=== PATIENT | female | born 1995 | race Caucasian/White ===

== ENCOUNTER 2022-12-08 19:15 | Emergency (ER) | payer BC, SELFPAY ==
[2022-12-08] VITALS (12 sets, daily range): BP systolic 103–112; BP diastolic 68–78; PULSE 78–90; RESP 16; TEMP 36.5; O2SAT 96–99; BMI 32.8
--- NOTE | 2022-12-08 19:53 | CRLHL7_ITS ---
For Patients: As a result of the Century Cures Act, medical imaging exams and procedure reports are released immediately into your electronic medical record. You may view this report before your referring provider. If you have questions, please contact your health care provider. INDICATION: Positive test. Left lower quadrant pain. TECHNIQUE: Ultrasound OB pelvis transabdominal and transvaginal. Real-time gomes-scale imaging of the pelvis was performed. COMPARISON: None FINDINGS: No intrauterine gestational sac was identified. Unremarkable appearance of the bilateral ovaries. Small volume pelvic free fluid noted. IMPRESSION: No intrauterine gestational sac identified. Findings reflect of unknown location, differential of which includes a very early , miscarriage, or unidentified ectopic . Recommend continued correlation/trending of serum beta HCG, and repeat ultrasound as clinically indicated. Dictated by Ge Ochoa MD @ 12/08/2022 11:40:45 PM (Electronically Signed)
[2022-12-08 20:36] LABS: Appearance Urine Clear (Clear); Bilirubin Urine Negative (Negative); Blood Urine 3+ (Negative); Color Urine Yellow (Yellow); Glucose Urine Negative (Negative); Ketones Urine Negative (Negative); Leukocyte Esterase Urine Trace (Negative); Nitrite Urine Negative (Negative); Protein Urine Negative (Negative); Specific Gravity Urine 1.015 (1.000-1.030); Urobilinogen Urine 0.2 (0.2-1.0)
[2022-12-08 20:38] LABS: Lactate* 0.6 mmol/L (0.5-1.9)
[2022-12-08 20:39] LABS: Basophils Percent Auto 0.1 % (0.0-3.0); Eosinophils Percent Auto 0.9 % (0.0-7.0); Hematocrit 41.8 % (33.0-51.0); Hemoglobin* 13.9 gm/dL (12.0-16.0); Immature Granulocytes Pct Auto 0.1 %; Lymphocytes Percent Auto 26.1 % (20-44); Mean Corpuscular HGB Conc 33 gm/dL (32-36); Mean Corpuscular Hemoglobin 28 pg (26-34); Mean Corpuscular Volume 85 fL (80-100); Monocytes Percent Auto 8.5 % (0.0-11.0); Neutrophils Percent Auto 64.3 % (42.0-72.0); Platelet Count* 418 K/uL (140-440); RDW Coefficient of Variation % 13.3 % (11.5-15.5); Red Blood Count 4.91 m/uL (4.00-5.20); White Blood Count* 14.19 K/uL (4.50-11.00)
[2022-12-08 20:45] LABS: Slide Review Reflex No
[2022-12-08 20:46] LABS: Squamous Epithelial Cell Urine Few (None-Few); WBC Urine 0-2 (0-5)
[2022-12-08 21:18] LABS: HCG Quantitative* 67.18 mIU/mL
[2022-12-08 21:59] LABS: Albumin* 4.2 g/dL (3.3-5.0); Chloride* 111 mmol/L (96-114); Potassium* 4.5 mmol/L (3.6-5.1); Sodium* 138 mmol/L (135-149)
[2022-12-08 22:01] LABS: Creatinine* 0.5 mg/dL (0.5-1.5); Est. Creatinine Clearance* 145.94; Estimated Glomerular Filt Rate 132 ml/min
[2022-12-08 22:02] LABS: Alanine Aminotransferase* 28 U/L (4-35); Alkaline Phosphatase* 83 U/L (40-150); Aspartate Amino Transferase* 41 U/L (12-35); Bilirubin Direct* 0.4 mg/dL (0.0-0.5); Bilirubin Total* 0.5 mg/dL (0.1-1.5); Blood Urea Nitrogen* 6 mg/dL (5-24); Calcium* 8.8 mg/dL (8.4-10.6); Carbon Dioxide* 15 mmol/L (20-32); Glucose* 82 mg/dL (60-115); Total Protein* 7.7 g/dL (6.0-8.3)
[2022-12-08 22:05] LABS: C Reactive Protein* 0.5 mg/dL (0.5-1.0)
--- NOTE | 2022-12-08 22:25 | ED.GENADULT ---
HPI - General Adult General Chief complaint: Vaginal Bleeding <Tamika Osullivan MD - Last Filed: 12/08/22 22:28> Stated complaint: Lower Left abdominal pain, <Tamika Osullivan MD - Last Filed: 12/08/22 22:28> Time Seen by Provider: 12/08/22 19:44 <Tamika Osullivan MD - Last Filed: 12/08/22 22:28> Source: patient <Tamika Osullivan MD - Last Filed: 12/08/22 22:28> Mode of arrival: ambulatory <Tamika Osullivan MD - Last Filed: 12/08/22 22:28> History of Present Illness HPI narrative: 27-year-old female G1 coming in today with vaginal bleeding cramping. Patient states that she was in to see her fertility doctor last week to start fertility treatments. She had a the test done prior to initiation of treatment and came back positive. She states that they did an ultrasound and then see anything inside the uterus or fallopian tubes. This that perhaps it was too early. Today she started having vaginal spotting with intense left lower quadrant abdominal pain. She denies nausea vomiting. No fevers or chills. Normal bowel movements. No pain with urination. No increased urinary frequency or urgency. She is concerned about an the topic . There is no PAIGE as patient's periods have been very irregular. <Tamika Osullivan MD - Last Filed: 12/08/22 22:28> Related Data Allergies/adverse reactions: Allergies Allergy/AdvReac Type Severity Reaction Status Date / Time Cephalosporins Allergy Verified 12/08/22 19:19 Corticosteroids Allergy Verified 12/08/22 19:19 (Glucocorticoids) <Tamika Osullivan MD - Last Filed: 12/08/22 22:28> Review of Systems Status of ROS: Reports: 10 or more systems reviewed and unremarkable except as noted in History and below <Tamika Osullivan MD - Last Filed: 12/08/22 22:28> [facility] [place] Social History: Social History Smoking Status: Never smoker Do you use any of these nicotine containing products: None Second hand tobacco smoke exposure: No How often do you have a drink containing alcohol: monthly or less How many standard drinks containing alcohol do you have on a typical day: 1 or 2 How often do you have six or more drinks on one occasion: Never AUDIT-C Alcohol total score: 1 Non-prescribed substance use: denies use service: No <Tamika Osullivan MD - Last Filed: 12/08/22 22:28> Exam Narrative: Exam Narrative: Well-nourished well-developed patient in no acute distress. Alert and oriented. Answers questions appropriately. Mood and affect are appropriate. Thoughts are goal oriented and rational. No tangential or magical thinking noted. Patient speaks in full sentences without needing to catch their breath. HEENT: Normocephalic atraumatic. Pupils are equally round reactive to light. Extraocular muscles are intact. Conjunctivae are moist without any icterus noted. Moist mucous membranes. Posterior pharynx is normal. Neck is soft without any lymphadenopathy or thyromegaly. No masses are appreciated. Cardiovascular: Heart is regular rate and rhythm S1 and S2 are present without any murmurs. Lungs: Clear to auscultation bilaterally no wheezes rhonchi or rales are appreciated. Patient takes deep breaths without any discomfort. Abdomen: Soft and nondistended with normal bowel sounds. She has no guarding or rebound. She does have some left lower quadrant tenderness into the pelvic region. Mild suprapubic discomfort as well. Extremities: Bilateral lower extremities are without edema. Normal DP and PT pulses. Skin: Well perfused without any obvious rashes. <Tamika Osullivan MD - Last Filed: 12/08/22 22:28> Const: Vital Signs, click to edit/add: Vital Signs - 24 hr 12/08/22 19:19 12/08/22 20:43 12/08/22 20:44 Temperature 97.7 F Pulse Rate 82 82 Pulse Rate [Pulse Oximeter] 86 Respiratory Rate 16 Blood Pressure 109/71 Blood Pressure [Ri ght Upper Arm] 112/78 Pulse Oximetry 99 98 97 Oxygen Delivery Me thod Room Air 12/08/22 20:45 Temperature Pulse Rate 85 Pulse Rate [Pulse Oximeter] Respiratory Rate Blood Pressure Blood Pressure [Ri ght Upper Arm] Pulse Oximetry 96 Oxygen Delivery Me thod <Tamika Osullivan MD - Last Filed: 12/08/22 22:28> Vital Signs, click to edit/add: Vital Signs - 24 hr 12/08/22 19:19 12/08/22 20:43 12/08/22 20:44 Temperature 97.7 F Pulse Rate 82 82 Pulse Rate [Pulse Oximeter] 86 Respiratory Rate 16 Blood Pressure 109/71 Blood Pressure [Ri ght Upper Arm] 112/78 Pulse Oximetry 99 98 97 Oxygen Delivery Me thod Room Air 12/08/22 20:45 Temperature Pulse Rate 85 Pulse Rate [Pulse Oximeter] Respiratory Rate Blood Pressure Blood Pressure [Ri ght Upper Arm] Pulse Oximetry 96 Oxygen Delivery Me thod <Toan Honeycutt MD - Last Filed: 12/09/22 00:07> Course Course Hospital Course: Labs showed a slightly elevated white cell count of 14,000. Remainder of lab work was unremarkable. Ultrasound pending at this time. Care transferred to oncoming physician. <Tamika Osullivan MD - Last Filed: 12/08/22 22:28> Reevaluation(s) Reevaluation #1: Ultrasound negative for ectopic or other pathology. <Toan Honeycutt MD - Last Filed: 12/09/22 00:07> Time: 23:09 <Toan Honeycutt MD - Last Filed: 12/09/22 00:07> Vital Signs Vital signs: Initial Vital Signs Temperature 97.7 F 12/08/22 19:19 Temperature Source Temporal Artery Scan 12/08/22 19:19 Pulse Rate 86 12/08/22 19:19 Pulse Rhythm 12/08/22 19:19 Respiratory Rate 16 12/08/22 19:19 Blood Pressure 112/78 12/08/22 19:19 Blood Pressure Mean 89 12/08/22 19:19 Blood Pressure Position Sitting 12/08/22 19:19 Pulse Oximetry 99 12/08/22 19:19 Oxygen Delivery Method 12/08/22 19:19 Vital Signs Temperature 97.7 F 12/08/22 19:19 Pulse Rate 86 12/08/22 19:19 Respiratory Rate 16 12/08/22 19:19 Blood Pressure 112/78 12/08/22 19:19 Pulse Oximetry 99 12/08/22 19:19 Oxygen Delivery Method 12/08/22 19:19 Temperature 97.7 F 12/08/22 19:19 Pulse Rate 85 12/08/22 20:45 Respiratory Rate 16 12/08/22 19:19 Blood Pressure 109/71 12/08/22 20:43 Pulse Oximetry 96 12/08/22 20:45 Oxygen Delivery Method 12/08/22 19:19 <Tamika Osullivan MD - Last Filed: 12/08/22 22:28> Initial Vital Signs Temperature 97.7 F 12/08/22 19:19 Temperature Source Temporal Artery Scan 12/08/22 19:19 Pulse Rate 86 12/08/22 19:19 Pulse Rhythm 12/08/22 19:19 Respiratory Rate 16 12/08/22 19:19 Blood Pressure 112/78 12/08/22 19:19 Blood Pressure Mean 89 12/08/22 19:19 Blood Pressure Position Sitting 12/08/22 19:19 Pulse Oximetry 99 12/08/22 19:19 Oxygen Delivery Method 12/08/22 19:19 Vital Signs Temperature 97.7 F 12/08/22 19:19 Pulse Rate 86 12/08/22 19:19 Respiratory Rate 16 12/08/22 19:19 Blood Pressure 112/78 12/08/22 19:19 Pulse Oximetry 99 12/08/22 19:19 Oxygen Delivery Method 12/08/22 19:19 Temperature 97.7 F 12/08/22 19:19 Pulse Rate 85 12/08/22 20:45 Respiratory Rate 16 12/08/22 19:19 Blood Pressure 109/71 12/08/22 20:43 Pulse Oximetry 96 12/08/22 20:45 Oxygen Delivery Method 12/08/22 19:19 <Toan Honeycutt MD - Last Filed: 12/09/22 00:07> Medical Decision Making MDM Narrative Medical decision making narrative: Pt is a 27 year old woman who comes in with mild vaginal bleeding after a recent positive quantitative HCG in the 70's. Pt has a normal pelvic ultrasound and the quant hcg is now in the 60's. Pt bleeding is minimal. This likely represents a recent miscarriage. Case discussed with OBGYN. Would recommend following the Beta HCG to zero. Follow up with [facility] this coming week. <Toan Honeycutt MD - Last Filed: 12/09/22 00:07> Differential Diagnosis Differential Diagnosis: Miscarriage, Vaginal Bleeding of , ectopic , PID, Infecti <Toan Honeycutt MD - Last Filed: 12/09/22 00:07> Lab Data Labs: Lab Results 12/08/22 12/08/22 12/08/22 Range/Units 19:53 20:23 20:23 WBC 14.19 H (4.50-11.00) K/uL RBC 4.91 (4.00-5.20) m/uL Hgb 13.9 (12.0-16.0) gm/dL Hct 41.8 (33.0-51.0) % MCV 85 (80-100) fL MCH 28 (26-34) pg MCHC 33 (32-36) gm/dL RDW Coeff of Dheeraj 13.3 (11.5-15.5) % Plt Count 418 (140-440) K/uL Neut % (Auto) 64.3 (42.0-72.0) % Lymph % (Auto) 26.1 (20-44) % [place] % (Auto) 8.5 (0.0-11.0) % Eos % (Auto) 0.9 (0.0-7.0) % Baso % (Auto) 0.1 (0.0-3.0) % Neut # (Auto) 9.10 H (1.7-7.0) K/uL Lymph # (Auto) 3.70 H (0.90-2.90) K/uL [place] # (Auto) 1.20 H (0.00-0.90) K/UL Eos # (Auto) 0.10 (0.00-0.50) K/uL Baso # (Auto) 0.00 (0.00-0.30) K/uL Sodium 138 (135-149) mmol/L Potassium 4.5 (3.6-5.1) mmol/L Chloride 111 (96-114) mmol/L Carbon Dioxide 15 L (20-32) mmol/L BUN 6 (5-24) mg/dL Creatinine 0.5 (0.5-1.5) mg/dL Estimated Creat Clear 145.94 Estimated GFR 132 ml/min Glucose 82 (60-115) mg/dL Lactate (0.5-1.9) mmol/L Calcium 8.8 (8.4-10.6) mg/dL Total Bilirubin 0.5 (0.1-1.5) mg/dL Direct Bilirubin 0.4 (0.0-0.5) mg/dL AST 41 H (12-35) U/L ALT 28 (4-35) U/L Alkaline Phosphatase 83 (40-150) U/L C-Reactive Protein 0.5 (0.5-1.0) mg/dL Total Protein 7.7 (6.0-8.3) g/dL Albumin 4.2 (3.3-5.0) g/dL HCG, Quant mIU/mL Urine Color Yellow (Yellow) Urine Appearance Clear (Clear) Urine pH 7.0 (5.0-8.5) Ur Specific [place] 1.015 (1.000-1.030) Urine Protein Negative (Negative) Urine Glucose (UA) Negative (Negative) Urine Ketones Negative (Negative) Urine Blood 3+ A (Negative) Urine Nitrite Negative (Negative) Urine Bilirubin Negative (Negative) Urine Urobilinogen 0.2 (0.2-1.0) Ur Leukocyte Esterase Trace A (Negative) Urine RBC 10-25 A (0-2) Urine WBC 0-2 (0-5) Ur Squamous Epith Cells Few (None-Few) Urine Bacteria None (None) 12/08/22 12/08/22 Range/Units 20:23 20:23 WBC (4.50-11.00) K/uL RBC (4.00-5.20) m/uL Hgb (12.0-16.0) gm/dL Hct (33.0-51.0) % MCV (80-100) fL MCH (26-34) pg MCHC (32-36) gm/dL RDW Coeff of Dheeraj (11.5-15.5) % Plt Count (140-440) K/uL Neut % (Auto) (42.0-72.0) % Lymph % (Auto) (20-44) % [place] % (Auto) (0.0-11.0) % Eos % (Auto) (0.0-7.0) % Baso % (Auto) (0.0-3.0) % Neut # (Auto) (1.7-7.0) K/uL Lymph # (Auto) (0.90-2.90) K/uL [place] # (Auto) (0.00-0.90) K/UL Eos # (Auto) (0.00-0.50) K/uL Baso # (Auto) (0.00-0.30) K/uL Sodium (135-149) mmol/L Potassium (3.6-5.1) mmol/L Chloride (96-114) mmol/L Carbon Dioxide (20-32) mmol/L BUN (5-24) mg/dL Creatinine (0.5-1.5) mg/dL Estimated Creat Clear Estimated GFR ml/min Glucose (60-115) mg/dL Lactate 0.6 (0.5-1.9) mmol/L Calcium (8.4-10.6) mg/dL Total Bilirubin (0.1-1.5) mg/dL Direct Bilirubin (0.0-0.5) mg/dL AST (12-35) U/L ALT (4-35) U/L Alkaline Phosphatase (40-150) U/L C-Reactive Protein (0.5-1.0) mg/dL Total Protein (6.0-8.3) g/dL Albumin (3.3-5.0) g/dL HCG, Quant 67.18 mIU/mL Urine Color (Yellow) Urine Appearance (Clear) Urine pH (5.0-8.5) Ur Specific [place] (1.000-1.030) Urine Protein (Negative) Urine Glucose (UA) (Negative) Urine Ketones (Negative) Urine Blood (Negative) Urine Nitrite (Negative) Urine Bilirubin (Negative) Urine Urobilinogen (0.2-1.0) Ur Leukocyte Esterase (Negative) Urine RBC (0-2) Urine WBC (0-5) Ur Squamous Epith Cells (None-Few) Urine Bacteria (None) <Tamika Osullivan MD - Last Filed: 12/08/22 22:28> Lab Results 12/08/22 12/08/22 12/08/22 Range/Units 19:53 20:23 20:23 WBC 14.19 H (4.50-11.00) K/uL RBC 4.91 (4.00-5.20) m/uL Hgb 13.9 (12.0-16.0) gm/dL Hct 41.8 (33.0-51.0) % MCV 85 (80-100) fL MCH 28 (26-34) pg MCHC 33 (32-36) gm/dL RDW Coeff of Dheeraj 13.3 (11.5-15.5) % Plt Count 418 (140-440) K/uL Neut % (Auto) 64.3 (42.0-72.0) % Lymph % (Auto) 26.1 (20-44) % [place] % (Auto) 8.5 (0.0-11.0) % Eos % (Auto) 0.9 (0.0-7.0) % Baso % (Auto) 0.1 (0.0-3.0) % Neut # (Auto) 9.10 H (1.7-7.0) K/uL Lymph # (Auto) 3.70 H (0.90-2.90) K/uL [place] # (Auto) 1.20 H (0.00-0.90) K/UL Eos # (Auto) 0.10 (0.00-0.50) K/uL Baso # (Auto) 0.00 (0.00-0.30) K/uL Sodium 138 (135-149) mmol/L Potassium 4.5 (3.6-5.1) mmol/L Chloride 111 (96-114) mmol/L Carbon Dioxide 15 L (20-32) mmol/L BUN 6 (5-24) mg/dL Creatinine 0.5 (0.5-1.5) mg/dL Estimated Creat Clear 145.94 Estimated GFR 132 ml/min Glucose 82 (60-115) mg/dL Lactate (0.5-1.9) mmol/L Calcium 8.8 (8.4-10.6) mg/dL Total Bilirubin 0.5 (0.1-1.5) mg/dL Direct Bilirubin 0.4 (0.0-0.5) mg/dL AST 41 H (12-35) U/L ALT 28 (4-35) U/L Alkaline Phosphatase 83 (40-150) U/L C-Reactive Protein 0.5 (0.5-1.0) mg/dL Total Protein 7.7 (6.0-8.3) g/dL Albumin 4.2 (3.3-5.0) g/dL HCG, Quant mIU/mL Urine Color Yellow (Yellow) Urine Appearance Clear (Clear) Urine pH 7.0 (5.0-8.5) Ur Specific [place] 1.015 (1.000-1.030) Urine Protein Negative (Negative) Urine Glucose (UA) Negative (Negative) Urine Ketones Negative (Negative) Urine Blood 3+ A (Negative) Urine Nitrite Negative (Negative) Urine Bilirubin Negative (Negative) Urine Urobilinogen 0.2 (0.2-1.0) Ur Leukocyte Esterase Trace A (Negative) Urine RBC 10-25 A (0-2) Urine WBC 0-2 (0-5) Ur Squamous Epith Cells Few (None-Few) Urine Bacteria None (None) 12/08/22 12/08/22 Range/Units 20:23 20:23 WBC (4.50-11.00) K/uL RBC (4.00-5.20) m/uL Hgb (12.0-16.0) gm/dL Hct (33.0-51.0) % MCV (80-100) fL MCH (26-34) pg MCHC (32-36) gm/dL RDW Coeff of Dheeraj (11.5-15.5) % Plt Count (140-440) K/uL Neut % (Auto) (42.0-72.0) % Lymph % (Auto) (20-44) % [place] % (Auto) (0.0-11.0) % Eos % (Auto) (0.0-7.0) % Baso % (Auto) (0.0-3.0) % Neut # (Auto) (1.7-7.0) K/uL Lymph # (Auto) (0.90-2.90) K/uL [place] # (Auto) (0.00-0.90) K/UL Eos # (Auto) (0.00-0.50) K/uL Baso # (Auto) (0.00-0.30) K/uL Sodium (135-149) mmol/L Potassium (3.6-5.1) mmol/L Chloride (96-114) mmol/L Carbon Dioxide (20-32) mmol/L BUN (5-24) mg/dL Creatinine (0.5-1.5) mg/dL Estimated Creat Clear Estimated GFR ml/min Glucose (60-115) mg/dL Lactate 0.6 (0.5-1.9) mmol/L Calcium (8.4-10.6) mg/dL Total Bilirubin (0.1-1.5) mg/dL Direct Bilirubin (0.0-0.5) mg/dL AST (12-35) U/L ALT (4-35) U/L Alkaline Phosphatase (40-150) U/L C-Reactive Protein (0.5-1.0) mg/dL Total Protein (6.0-8.3) g/dL Albumin (3.3-5.0) g/dL HCG, Quant 67.18 mIU/mL Urine Color (Yellow) Urine Appearance (Clear) Urine pH (5.0-8.5) Ur Specific [place] (1.000-1.030) Urine Protein (Negative) Urine Glucose (UA) (Negative) Urine Ketones (Negative) Urine Blood (Negative) Urine Nitrite (Negative) Urine Bilirubin (Negative) Urine Urobilinogen (0.2-1.0) Ur Leukocyte Esterase (Negative) Urine RBC (0-2) Urine WBC (0-5) Ur Squamous Epith Cells (None-Few) Urine Bacteria (None) <Toan Honeycutt MD - Last Filed: 12/09/22 00:07> Discharge Plan Discharge Clinical Impression: Miscarriage <Tamika Osullivan MD - Last Filed: 12/08/22 22:28> Patient Disposition: Home, Self-Care <Tamika Osullivan MD - Last Filed: 12/08/22 22:28> Condition: Stable <Tamika Osullivan MD - Last Filed: 12/08/22 22:28> Instructions: Miscarriage (ED) <Tamika Osullivan MD - Last Filed: 12/08/22 22:28> Additional Instructions: Tylenol Motrin Rest Fluids Follow up with [facility] this coming week. <Tamika Osullivan MD - Last Filed: 12/08/22 22:28> Activity Level: No Restrictions <Tamika Osullivan MD - Last Filed: 12/08/22 22:28> No Restrictions <Toan Honeycutt MD - Last Filed: 12/09/22 00:07> Discharge Diet: Regular <Tamika Osullivan MD - Last Filed: 12/08/22 22:28> Regular <Toan Honeycutt MD - Last Filed: 12/09/22 00:07> Follow Up/Referrals: Provider,Not a Local [Primary Care Provider] - <Tamika Osullivan MD - Last Filed: 12/08/22 22:28> Stand Alone Forms: My[facility] Info Instructions <Tamika Osullivan MD - Last Filed: 12/08/22 22:28>
[2022-12-09 00:06] VITALS: PULSE 78; O2SAT 99
[2022-12-09 00:07] VITALS: BP 115/77
--- NOTE | 2022-12-09 00:30 | ED.NURSE ---
Pt was calm and pleasant during ER visit, did not indicate vaginal bleeding, accompanied by SO.
== END 2022-12-09 00:57 | disposition home or self-care (01) ==
PROVIDERS: Family Medicine; Emergency Provider Internal Medicine
DX: O03.9 Complete or unspecified spontaneous abortion without complication (principal)
CPT/HCPCS: 36415; 76815; 76817; 80048; 80076; 81001; 83605; 84702; 85025; 86140; 86850; 86900; 86901; 87086; 93976; 99283